=== PATIENT | female | born 1975 | race African-American/Black ===

== ENCOUNTER 2019-08-13 16:15 | Emergency (ER) | payer MEDICAID ==
[~2019-08-13] VITALS: Ht 162.6 cm; Wt 109.0 kg
[2019-08-13 16:22] VITALS: BP 148/87
[2019-08-13] MEDS ORDERED: HYDROCODONE/ACETAMINOPHEN 5/325MG TABLET PO ONE (17:15)
== END 2019-08-13 19:24 | disposition home or self-care (01) ==
LOC: ER 16:15
DX: S30.0XXA Contusion of lower back and pelvis, initial encounter (principal); S80.02XA Contusion of left knee, initial encounter; S70.02XA Contusion of left hip, initial encounter; S70.01XA Contusion of right hip, initial encounter; W01.0XXA Fall on same level from slipping, tripping and stumbling without subsequent striking against object, initial encounter; Y93.89 Activity, other specified; Y92.521 Bus station as the place of occurrence of the external cause; I10 Essential (primary) hypertension
CPT/HCPCS: 72100; 73522; 73562; 99284